=== PATIENT | female | born 2005 | race American Indian/Alaskan Native ===

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

== ENCOUNTER 2024-09-25 14:46 | Emergency (ER) | payer MEDICAID | END 2024-09-25 15:22 | disposition home or self-care (01) | LOC: DL.ED 14:46 | DX: K12.1 Other forms of stomatitis (principal) | CPT/HCPCS: 99282 ==

== ENCOUNTER 2025-01-02 14:40 | Emergency (ER) | payer SELFPAY ==
[2025-01-02] MEDS: Ketorolac 30 MG/ML SDV IM ONE (15:17)
== END 2025-01-02 16:25 | disposition home or self-care (01) ==
LOC: DL.ED 14:40
DX: S93.402A Sprain of unspecified ligament of left ankle, initial encounter (principal); W10.9XXA Fall (on) (from) unspecified stairs and steps, initial encounter
CPT/HCPCS: 73610; 96372; 99283; J1885

== ENCOUNTER 2025-05-25 09:51 | Emergency (ER) | payer MEDICAID ==
[2025-05-25] MEDS ORDERED: Sodium Chloride 0.9% 10 ML Syringe FLUSH PRN (10:20)
[2025-05-25 10:34] LABS: BASOPHILS PERCENT AUTO 0.3 % (0.0-1.0); EOSINOPHILS PERCENT AUTO 2.1 % (1.0-3.0); LYMPHOCYTES PERCENT AUTO 10.9 % (20.5-50.1); MONOCYTES PERCENT AUTO 3.7 % (2-8); NEUTROPHILS PERCENT AUTO 83.0 % (42.2-75.2); PLATELET COUNT,PLT 218 10^3/uL (150-450); RED BLOOD CELL COUNT 4.60 10^6/uL (4.2-5.4); WHITE BLOOD CELL COUNT,WBC 13.5 10^3/uL (5.0-10.0)
[2025-05-25 10:50] LABS: HCG QUALITATIVE,SERUM NEGATIVE (NEGATIVE)
[2025-05-25 10:55] LABS: A/G RATIO 1.1; ALANINE AMINOTRANSFERASE,ALT 111 U/L (14-59); ASPARTATE AMNIOTRANSFERASE,AST 50 U/L (15-37); BILIRUBIN TOTAL 0.5 mg/dL (0.2-1.0); BLOOD UREA NITROGEN,BUN 11 mg/dL (7-18); CARBON DIOXIDE,CO2 26 mmol/L (21-32); CHLORIDE,CL 103 mmol/L (98-107); CREATININE 0.78 mg/dL (0.55-1.02); GLUCOSE RANDOM 103 mg/dL (70-99); POTASSIUM,K 3.8 mmol/L (3.5-5.1); PROTEIN TOTAL,TP 7.5 g/dL (6.4-8.2); SODIUM,NA 138 mmol/L (136-145)
[2025-05-25 11:04] LABS: ESTIMATED GFR 111 mL/min (>=60); ETHANOL BLOOD MEDICAL < 3 mg/dL (0)
[2025-05-25] MEDS: Iopamidol 612 MG/ML 100 ML Bottle IVPUSH ONE (11:18)
== END 2025-05-25 13:50 | disposition home or self-care (01) ==
LOC: DL.ED 09:51
DX: K80.20 Calculus of gallbladder without cholecystitis without obstruction (principal); F17.200 Nicotine dependence, unspecified, uncomplicated
CPT/HCPCS: 36415; 74177; 80053; 80307; 83690; 83735; 84703; 85025; 99285; Q9967

== ENCOUNTER 2025-10-01 06:15 | Emergency (ER) | payer MEDICAID ==
[2025-10-01 06:37] LABS: BASOPHILS PERCENT AUTO 0.5 % (0.0-1.0); EOSINOPHILS PERCENT AUTO 7.7 % (1.0-3.0); LYMPHOCYTES PERCENT AUTO 38.7 % (20.5-50.1); MONOCYTES PERCENT AUTO 6.2 % (2-8); NEUTROPHILS PERCENT AUTO 46.9 % (42.2-75.2); PLATELET COUNT,PLT 226 10^3/uL (150-450); RED BLOOD CELL COUNT 4.50 10^6/uL (4.2-5.4); WHITE BLOOD CELL COUNT,WBC 8.3 10^3/uL (5.0-10.0)
[2025-10-01] MEDS: Ketorolac 30 MG/ML SDV IVPUSH ONE (06:43)
[2025-10-01 06:50] LABS: A/G RATIO 1.0; ALANINE AMINOTRANSFERASE,ALT 45 U/L (14-59); ASPARTATE AMNIOTRANSFERASE,AST 36 U/L (15-37); BILIRUBIN TOTAL 0.2 mg/dL (0.2-1.0); BLOOD UREA NITROGEN,BUN 8 mg/dL (7-18); CARBON DIOXIDE,CO2 21 mmol/L (21-32); CHLORIDE,CL 104 mmol/L (98-107); CREATININE 0.64 mg/dL (0.55-1.02); EST CRCL DRUG DOSING (CG) 109.97 mL/min; GLUCOSE RANDOM 106 mg/dL (70-99); POTASSIUM,K 3.8 mmol/L (3.5-5.1); PROTEIN TOTAL,TP 7.3 g/dL (6.4-8.2); SODIUM,NA 138 mmol/L (136-145)
[2025-10-01 06:56] LABS: ESTIMATED GFR 129 mL/min (>=60); ETHANOL BLOOD MEDICAL < 3 mg/dL (0)
== END 2025-10-01 08:28 | disposition home or self-care (01) ==
LOC: DL.ED 06:15
DX: K80.70 Calculus of gallbladder and bile duct without cholecystitis without obstruction (principal)
CPT/HCPCS: 36415; 76705; 80053; 80307; 83690; 85025; 96374; 99285; J1885; 99284